=== PATIENT | female | born 1970 | race African-American/Black ===

== ENCOUNTER 2018-04-18 15:17 | Emergency (ER) | payer BC ==
[2018-04-18] MEDS ORDERED: FAMOTIDINE 20 MG/2 ML VIAL IV ONE (15:27)
[2018-04-18] MEDS ORDERED: METHYLPREDNISOLONE 125 MG INJ ONE (15:27)
--- NOTE | 2018-04-18 16:07 | ER ---
Nurse's Notes [facility] Name: Tania Jain Age: 47 yrs Sex: Female : 1970 Arrival Date: 04/18/2018 Time: 15:19 Bed 5 Private MD: Diagnosis: Urticaria Presentation: 04/18 15:30 Presenting complaint: Patient states: Developed hives on face after CT, sent from radiology dept. Transition of care: patient was not received from another setting of care. Onset of symptoms was April 18, 2018. Risk Assessment: Do you want to hurt yourself or someone else? Patient reports no desire to harm self or others. Initial Sepsis Screen: Does the patient meet any 2 criteria? No. Patient's initial sepsis screen is negative. Does the patient have a suspected source of infection? No. Patient's initial sepsis screen is negative. Care prior to arrival: None. 15:30 Method Of Arrival: Ambulatory 15:30 Acuity: BART 3 Triage Assessment: 15:15 General: Appears in no apparent distress. comfortable, Behavior is calm, cooperative, cc3 appropriate for age. Pain: Denies pain. EENT: No signs and/or symptoms were reported regarding the EENT system. Neuro: Level of Consciousness is awake, alert, obeys commands, Oriented to person, place, time, situation, Appropriate for age. Cardiovascular: Denies chest pain. Respiratory: Airway is patent Respiratory effort is even, unlabored, Respiratory pattern is regular, symmetrical. GI: Abdomen is round. : No signs and/or symptoms were reported regarding the genitourinary system. Derm: Reports developing hives on the face after being injected iodine contrast dye from CT scan department for her outpatient CT scan abdomen procedure at 1500H. Musculoskeletal: No signs and/or symptoms reported regarding the musculoskeletal system. [employer]: 15:15 LMP 09/2017 cc3 Historical: - Allergies: 15:30 No Known Allergies; hb - Immunization history:: Adult Immunizations up to date. - Social history:: Smoking status: Patient uses tobacco products. - Ebola Screening: : No symptoms or risks identified at this time. Screenin:31 Abuse screen: Denies threats or abuse. Denies injuries from another. Nutritional hb screening: No deficits noted. Tuberculosis screening: No symptoms or risk factors identified. Fall Risk None identified. Assessment: 15:15 General: Appears in no apparent distress. comfortable, Behavior is calm, cooperative, cc3 appropriate for age. Pain: Denies pain. Neuro: Level of Consciousness is awake, alert, obeys commands, Oriented to person, place, time, situation, Appropriate for age. Cardiovascular: Denies chest pain. Respiratory: Airway is patent Respiratory effort is even, unlabored, Respiratory pattern is regular, symmetrical. GI: Abdomen is round. : No signs and/or symptoms were reported regarding the genitourinary system. EENT: No signs and/or symptoms were reported regarding the EENT system. Derm: hives developed on the face after being injected iodine contrast dye from CT scan department. Musculoskeletal: No signs and/or symptoms reported regarding the musculoskeletal system. 16:00 Reassessment: Patient appears in no apparent distress at this time. Patient and/or cc3 family updated on plan of care and expected duration. Pain level reassessed. Patient is alert, oriented x 3, equal unlabored respirations, skin warm/dry/pink. hives on the face subsided and almost gone. Patient denies pain at this time. Patient states feeling better. Patient states symptoms have improved. Vital Signs: 15:15 BP 111 / 85; Pulse 73; Resp 18; Pulse Ox 97% ; sv 16:00 BP 110 / 77; Pulse 72; Resp 17; Pulse Ox 97% on R/A; Pain 0/10; cc3 ED Course: 15:15 Patient has correct armband on for positive identification. Bed in low position. Call cc3 light in reach. Side rails up X 1. 15:19 Patient arrived in ED. kb 15:19 Kandi Andrade FNP-C is [facility]. kb 15:19 Mainor Kiser MD is Attending Physician. kb 15:20 Inserted saline lock: 20 gauge in right antecubital area, using aseptic technique. cc3 15:31 Triage completed. hb 15:31 Arm band placed on right wrist. hb 15:50 Heather Escobedo is Primary Nurse. cc3 16:10 IV discontinued, intact, bleeding controlled, No redness/swelling at site. Pressure cc3 dressing applied. 16:10 No provider procedures requiring assistance completed. cc3 Administered Medications: 15:25 Drug: Pepcid 20 mg Route: IVP; Site: right antecubital; cc3 16:00 Follow up: Response: No adverse reaction cc3 15:30 Drug: SOLU-Medrol 125 mg Route: IVP; Site: right antecubital; cc3 16:00 Follow up: Response: No adverse reaction cc3 Outcome: 16:07 Discharge ordered by . ruby 16:10 Discharged to home ambulatory. cc3 16:10 Condition: stable 16:10 Discharge instructions given to Instructed on discharge instructions, follow up and referral plans. medication usage, Demonstrated understanding of instructions, follow-up care, medications, Prescriptions given X 2. 16:16 Patient left the ED. cc3 Signatures: Kandi Andrade, ROBIN-Beba Waite RN RN Trina Rodriguez RN RN Heather Chang cc3
--- NOTE | 2018-04-18 16:07 | EDPHYS ---
Physician Documentation [facility] Name: Tania Jain Age: 47 yrs Sex: Female : 1970 Arrival Date: 04/18/2018 Time: 15:19 Bed 5 Private MD: ED Physician Mainor Kiser HPI: 04/18 16:05 This 47 yrs old Black Female presents to ER via Ambulatory with complaints of Allergic kb Reaction. 16:05 The patient presents with itching, rash, of the face. Onset: The symptoms/episode kb began/occurred just prior to arrival. Associated signs and symptoms: Pertinent positives: hives, Pertinent negatives: abdominal pain, Altered mental status chest pain, dysphagia, fever, headache, Light headed nausea, rash, shortness of breath, swelling, Syncope vomiting. Possible causes: IV contrast. At home the patient or guardian has treated the symptoms with nothing. Severity of symptoms: At their worst the symptoms were mild in the emergency department the symptoms are unchanged. The patient has not experienced similar symptoms in the past. The patient has not recently seen a physician. Pt was having an outpatient CT done with contrast and developed hives after IV contrast infused. It was pt's first time to receive contrast.. 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 - Social history:: Smoking status: Patient uses tobacco products. - Ebola Screening: : No symptoms or risks identified at this time. ROS: 16:04 Constitutional: Negative for fever, chills, and weight loss, Cardiovascular: Negative kb for chest pain, palpitations, and edema, Respiratory: Negative for shortness of breath, cough, wheezing, and pleuritic chest pain, Abdomen/GI: Negative for abdominal pain, nausea, vomiting, diarrhea, and constipation, Back: Negative for injury and pain, : Negative for injury, bleeding, discharge, and swelling, MS/Extremity: Negative for injury and deformity, Neuro: Negative for headache, weakness, numbness, tingling, and seizure. 16:04 Skin: Positive for rash, of the face. Exam: 16:04 Constitutional: This is a well developed, well nourished patient who is awake, alert, kb and in no acute distress. Head/Face: Normocephalic, atraumatic. Chest/axilla: Normal chest wall appearance and motion. Nontender with no deformity. No lesions are appreciated. Cardiovascular: Regular rate and rhythm with a normal S1 and S2. No gallops, murmurs, or rubs. Normal PMI, no JVD. No pulse deficits. Respiratory: Lungs have equal breath sounds bilaterally, clear to auscultation and percussion. No rales, rhonchi or wheezes noted. No increased work of breathing, no retractions or nasal flaring. Abdomen/GI: Soft, non-tender, with normal bowel sounds. No distension or tympany. No guarding or rebound. No evidence of tenderness throughout. MS/ Extremity: Pulses equal, no cyanosis. Neurovascular intact. Full, normal range of motion. Neuro: Awake and alert, GCS 15, oriented to person, place, time, and situation. Cranial nerves II-XII grossly intact. Motor strength 5/5 in all extremities. Sensory grossly intact. Cerebellar exam normal. Normal gait. 16:04 Skin: rash a mild rash is noted, consistent with urticaria, on the face. Vital Signs: 15:15 BP 111 / 85; Pulse 73; Resp 18; Pulse Ox 97% ; sv 16:00 BP 110 / 77; Pulse 72; Resp 17; Pulse Ox 97% on R/A; Pain 0/10; cc3 MDM: 15:19 Patient medically screened. kb 16:04 Data reviewed: vital signs, nurses notes. Data interpreted: Pulse oximetry: on room air kb is 97 %. Interpretation: normal. Counseling: I had a detailed discussion with the patient and/or guardian regarding: the historical points, exam findings, and any diagnostic results supporting the discharge/admit diagnosis, the need for outpatient follow up, a family practitioner, to return to the emergency department if symptoms worsen or persist or if there are any questions or concerns that arise at home. 04/18 15:20 Order name: IV Start; Complete Time: 15:39 kb Administered Medications: 15:25 Drug: Pepcid 20 mg Route: IVP; Site: right antecubital; cc3 16:00 Follow up: Response: No adverse reaction cc3 15:30 Drug: SOLU-Medrol 125 mg Route: IVP; Site: right antecubital; cc3 16:00 Follow up: Response: No adverse reaction cc3 Disposition: 04/18/18 16:07 Discharged to Home. Impression: Urticaria. - Condition is Stable. - Discharge Instructions: Hives, [id number], Allergies, [id number]. - Prescriptions for Pepcid 20 mg Oral Tablet - take 1 tablet by ORAL route every 12 hours for 5 days; 10 tablet. Prednisone 20 mg Oral Tablet - take 1 tablet by ORAL route once daily for 5 days; 5 tablet. - Medication Reconciliation Form, Thank You Letter, Antibiotic Education, Prescription Opioid Use form. - Follow up: Emergency Department; When: As needed; Reason: Worsening of condition. Follow up: Private Physician; When: 2 - 3 days; Reason: Recheck today's complaints, Continuance of care, Re-evaluation by your physician. Addendum: 04/22/2018 07:47 Co-signature as Attending Physician, Mainor Kiser MD I agree with the assessment and c higginbotham plan of care. Signatures: Kandi Andrade, BARREL CLEANER-C BARREL CLEANER-Ckb Mainor Kiser MD MD cha Baxter, Heather, RN RN Heather Escobedo cc3 Corrections: (The following items were deleted from the chart) 04/18 16:16 16:07 04/18/2018 16:07 Discharged to Home. Impression: Urticaria. Condition is Stable. cc3 Forms are Medication Reconciliation Form, Thank You Letter, Antibiotic Education, Prescription Opioid Use. Follow up: Emergency Department; When: As needed; Reason: Worsening of condition. Follow up: Private Physician; When: 2 - 3 days; Reason: Recheck today's complaints, Continuance of care, Re-evaluation by your physician. kb
== END 2018-04-18 16:16 | disposition home or self-care (01) ==
LOC: ER 15:17
DX: L50.9 Urticaria, unspecified (principal); Z72.0 Tobacco use
CPT/HCPCS: 96374; 96375; 99283; J2930

== ENCOUNTER 2019-09-25 13:35 | Emergency (ER) | payer BC ==
[2019-09-25 14:48] LABS: Absolute Lymphocytes (CBC) 2.6 K/uL (0.7-4.9); Basophils % 0.6 % (0-1.3); Hematocrit 41.1 % (36.0-45.0); Lymphocytes % 26.7 % (15.3-44.8); MPV 9.1 fL (7.6-11.3)
[2019-09-25 14:51] LABS: Protime INR 1.12
[2019-09-25 15:06] LABS: ALT/SGPT 27 U/L (12-78); AST/SGOT 19 U/L (15-37); Albumin 3.7 g/dL (3.4-5.0); Alkaline Phosphatase 111 U/L (45-117); BUN Blood Urea Nitrogen 10 mg/dL (7-18); Bicarbonate 30 mmol/L (21-32); Bilirubin Direct 0.1 mg/dL (0-0.2); Bilirubin Total 0.4 mg/dL (0.2-1.0); Creatine Phosphokinase 97 U/L (26-192); Glucose Level 112 mg/dL (74-106); Magnesium 2.2 mg/dL (1.8-2.4); NT PRO-BNP 24 pg/mL (<125); Potassium 3.5 mmol/L (3.5-5.1); Protein, Total 8.3 g/dL (6.4-8.2); Sodium Level 140 mmol/L (136-145); Troponin (Emerg Dept Use Only) < 0.02 ng/mL (0.0-0.045)
--- NOTE | 2019-09-25 15:07 | EKG ---
Test Date: 2019-09-25 Test Time: 14:25:13 Art Instructor: BELLE MEASUREMENT RESULTS: Intervals: Rate: 71 WA: 132 QRSD: 80 QT: 390 QTc: 423 [place]: P: 74 WA: 132 QRS: 79 T: 66 INTERPRETIVE STATEMENTS: Normal sinus rhythm with sinus arrhythmia Normal ECG No previous ECG available for comparison Electronically Signed On 09-25-19 15:06:31 STICKER HAND by Goran Graham
--- NOTE | 2019-09-25 15:14 | RAD REPORT ---
EXAM DESCRIPTION: RAD - Tib Fib Left - 09/25/2019 3:07 pm CLINICAL HISTORY: lower extremity pain Pain and swelling COMPARISON: No comparisons FINDINGS: No bone or joint abnormality is detected.
--- NOTE | 2019-09-25 15:16 | RAD REPORT ---
EXAM DESCRIPTION: RAD - Chest Single View - 09/25/2019 3:07 pm CLINICAL HISTORY: CHEST PAIN Chest pain. COMPARISON: No comparisons FINDINGS: Portable technique limits examination quality. The lungs are grossly clear. The heart is normal in size. No displaced fractures. IMPRESSION: No acute intrathoracic process suspected.
--- NOTE | 2019-09-25 15:40 | EDPHYS ---
Physician Documentation [facility] Name: Tania Jain Age: 49 yrs Sex: Female : 1970 Arrival Date: 09/25/2019 Time: 13:38 Bed 26 Private MD: ED Physician Juana Benavides HPI: 09/25 14:35 This 49 yrs old Black Female presents to ER via Ambulatory with complaints of Leg Pain, jmm Chest Pain. 14:35 The patient presents with pain. Onset: The symptoms/episode began/occurred 6 month(s) jmm ago. Modifying factors: The symptoms are alleviated by nothing. the symptoms are aggravated by nothing. This is a 49 year of female with no chronic medical conditions that presents to the ED with complaints of ongoing extremity pain. Patient states this past week she developed spasms to her chest and abdomen. Patient states she has been having ongoing pain which is currently being evaluated by her pcp. . 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 - Coronavirus screen:: The patient has NOT traveled to [place], [place], or [place] in the past 14 days. Proceed with normal triage process as indicated. - Social history:: Smoking status: Patient denies any tobacco usage or history of. - Ebola Screening: : Patient negative for fever greater than or equal to 101.5 degrees Fahrenheit, and additional compatible Ebola Virus Disease symptoms Patient denies exposure to infectious person Patient denies travel to an Ebola-affected area in the 21 days before illness onset No symptoms or risks identified at this time. ROS: 14:35 Constitutional: Negative for fever, chills, and weight loss. jmm 14:35 Cardiovascular: Positive for chest pain. 14:35 Respiratory: Negative for shortness of breath. 14:35 Abdomen/GI: Positive for abdominal pain. 14:35 MS/extremity: Positive for pain. 14:35 All other systems are negative. Exam: 14:35 Constitutional: This is a well developed, well nourished patient who is awake, alert, jmm and in no acute distress. Head/Face: atraumatic. Eyes: EOMI, no conjunctival erythema appreciated ENT: Moist Mucus Membranes Neck: Trachea midline, Supple Chest/axilla: Normal chest wall appearance and motion. Cardiovascular: Regular rate and rhythm. No edema appreciated Respiratory: Normal respirations, no respiratory distress appreciated Abdomen/GI: Non distended, soft Back: Normal ROM Skin: General appearance color normal MS/ Extremity: Moves all extremities, no obvious deformities appreciated, no edema noted to the lower extremities Neuro: Awake and alert, normal gait Psych: Behavior is normal, Mood is normal, Patient is cooperative and pleasant 14:35 Musculoskeletal/extremity: ROM: intact in all extremities. Vital Signs: 14:13 BP 124 / 93; Pulse 97; Resp 16 S; Temp 98.3; Pulse Ox 100% on R/A; Weight 87.09 kg; iw Height 5 ft. 1 in. (154.94 cm); Pain 6/10; 15:11 BP 125 / 75; Pulse 66; Resp 18; Pulse Ox 100% on R/A; wh 15:47 BP 107 / 78; Pulse 70; Resp 16; Pulse Ox 100% on R/A; wh 14:13 Body Mass Index 36.28 (87.09 kg, 154.94 cm) iw MDM: 14:16 Patient medically screened. [facility] 15:37 Data reviewed: vital signs, nurses notes. Counseling: I had a detailed discussion with leonora the patient and/or guardian regarding: the historical points, exam findings, and any diagnostic results supporting the discharge/admit diagnosis, lab results, radiology results, the need for outpatient follow up, to return to the emergency department if symptoms worsen or persist or if there are any questions or concerns that arise at home. ED course: Patient is alert and non toxic in appearance. I do not currently suspect ACS, PE, or DVT. Patient advised to follow up with neuro for further evaluation of pain. Patient is advised to follow up with pcp for reevaluation. Patient is otherwise given strict return precautions. patient understood and agrees with the plan of care. . 09/25 14:17 Order name: Basic Metabolic Panel; Complete Time: 15: [facility] 09/25 14:17 Order name: CBC with Diff; Complete Time: 15: [facility] 09/25 14:17 Order name: LFT's; Complete Time: : [facility] 09/25 14:17 Order name: Magnesium; Complete Time: 15:07 [facility] 09/25 14:17 Order name: NT PRO-BNP; Complete Time: 15: [facility] 09/25 14:17 Order name: PT-INR; Complete Time: 15:02 [facility] 09/25 14:17 Order name: Troponin (emerg Dept Use Only); Complete Time: 15:07 [facility] 09/25 14:17 Order name: XRAY Chest (1 view); Complete Time: 15:26 [facility] 09/25 14:17 Order name: EKG; Complete Time: 14:18 [facility] 09/25 14:17 Order name: Cardiac monitoring; Complete Time: 14:36 [facility] 09/25 14:17 Order name: EKG - Nurse/Tech; Complete Time: 14:36 [facility] 09/25 14:17 Order name: CPK; Complete Time: 15: [facility] 09/25 14:17 Order name: D-Dimer; Complete Time: 15:02 [facility] 09/25 14:17 Order name: Tib Fib Left XRAY; Complete Time: 15:26 [facility] 09/25 14:17 Order name: IV Saline Lock; Complete Time: 14:36 [facility] 09/25 14:17 Order name: Labs collected and sent; Complete Time: 14:36 [facility] 09/25 14:17 Order name: O2 Per Protocol; Complete Time: 14:36 [facility] 09/25 14:17 Order name: O2 Sat Monitoring; Complete Time: 14:36 jm Administered Medications: No medications were administered Disposition: 18:17 Co-signature as Attending Physician, Juana Benavides MD. ma2 Disposition: 09/25/19 15:39 Discharged to Home. Impression: Pain in left lower leg, Chest pain, unspecified. - Condition is Stable. - Discharge Instructions: Nonspecific Chest Pain, Musculoskeletal Pain. - Medication Reconciliation Form, Thank You Letter, Antibiotic Education, Prescription Opioid Use form. - Follow up: Yan Lopez MD; When: 1 - 2 days; Reason: Recheck today's complaints, Continuance of care, Re-evaluation by your physician. Signatures: Dispatcher [employer] EDTristen José PA PA jmm Williams, Irene, RN RN iw Habalo, Winsy wh Alzahri, Mohammad, MD MD ma2 Corrections: (The following items were deleted from the chart) 15:40 15:39 09/25/2019 15:39 Discharged to Home. Impression: Pain in left lower leg; Chest jmm pain, unspecified. Condition is Stable. Forms are Medication Reconciliation Form, Thank You Letter, Antibiotic Education, Prescription Opioid Use. Follow up: Private Physician; When: 2 - 3 days; Reason: Recheck today's complaints, Continuance of care, Re-evaluation by your physician. [facility] 15:54 15:40 09/25/2019 15:39 Discharged to Home. Impression: Pain in left lower leg; Chest wh pain, unspecified. Condition is Stable. Discharge Instructions: Nonspecific Chest Pain, Musculoskeletal Pain. Forms are Medication Reconciliation Form, Thank You Letter, Antibiotic Education, Prescription Opioid Use. Follow up: Yan Lopez; When: 1 - 2 days; Reason: Recheck today's complaints, Continuance of care, Re-evaluation by your physician. [facility]
--- NOTE | 2019-09-25 15:40 | ER ---
Nurse's Notes [facility] Name: Tania Jain Age: 49 yrs Sex: Female : 1970 Arrival Date: 09/25/2019 Time: 13:38 Bed 26 Private MD: Diagnosis: Pain in left lower leg;Chest pain, unspecified Presentation: 09/25 14:06 Presenting complaint: Patient states: pt has had muscle spasms in chest all last week iw also has had pain all over body since March, was seen by PCP and told her vitamin D was low also feels burning pain under her skin and has had a low grade fever this past week. Transition of care: patient was not received from another setting of care. Onset of symptoms was September 19, 2019. Risk Assessment: Do you want to hurt yourself or someone else? Patient reports no desire to harm self or others. Initial Sepsis Screen: Does the patient meet any 2 criteria? No. Patient's initial sepsis screen is negative. Does the patient have a suspected source of infection? No. Patient's initial sepsis screen is negative. Care prior to arrival: None. 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 - Coronavirus screen:: The patient has NOT traveled to [place], [place], or [place] in the past 14 days. Proceed with normal triage process as indicated. - Social history:: Smoking status: Patient denies any tobacco usage or history of. - Ebola Screening: : Patient negative for fever greater than or equal to 101.5 degrees Fahrenheit, and additional compatible Ebola Virus Disease symptoms Patient denies exposure to infectious person Patient denies travel to an Ebola-affected area in the 21 days before illness onset No symptoms or risks identified at this time. Screenin:10 Abuse screen: Denies threats or abuse. Denies injuries from another. Nutritional wh screening: No deficits noted. Tuberculosis screening: No symptoms or risk factors identified. Fall Risk None identified. Assessment: 14:05 General: Appears in no apparent distress. well groomed, Behavior is calm, cooperative, wh appropriate for age. Pain: Complains of pain in generalized pain all over Pain does not radiate. Pain began a week ago. Neuro: Level of Consciousness is awake, alert, obeys commands, Oriented to person, place, time, situation, Appropriate for age. Cardiovascular: Denies chest pain, Heart tones S1 S2 Rhythm is regular. Respiratory: Airway is patent Respiratory effort is even, unlabored, Respiratory pattern is regular, symmetrical, Breath sounds are clear bilaterally. GI: Abdomen is flat, non-distended. : No signs and/or symptoms were reported regarding the genitourinary system. EENT: No signs and/or symptoms were reported regarding the EENT system. Derm: Skin is intact, is healthy with good turgor, Skin is pink, warm \T\ dry. normal. Musculoskeletal: Circulation, motion, and sensation intact. Reports muscle spasms. 15:07 Reassessment: Patient appears in no apparent distress at this time. No changes from previously documented assessment. Patient and/or family updated on plan of care and expected duration. Pain level reassessed. Patient is alert, oriented x 3, equal unlabored respirations, skin warm/dry/pink. 15:47 Reassessment: Patient appears in no apparent distress at this time. No changes from previously documented assessment. Patient and/or family updated on plan of care and expected duration. Pain level reassessed. Patient is alert, oriented x 3, equal unlabored respirations, skin warm/dry/pink. Patient denies pain at this time. Vital Signs: 14:13 BP 124 / 93; Pulse 97; Resp 16 S; Temp 98.3; Pulse Ox 100% on R/A; Weight 87.09 kg; iw Height 5 ft. 1 in. (154.94 cm); Pain 6/10; 15:11 BP 125 / 75; Pulse 66; Resp 18; Pulse Ox 100% on R/A; wh 15:47 BP 107 / 78; Pulse 70; Resp 16; Pulse Ox 100% on R/A; wh 14:13 Body Mass Index 36.28 (87.09 kg, 154.94 cm) iw ED Course: 13:38 Patient arrived in ED. ag5 14:05 Missed attempt(s): 22 gauge in right antecubital area. Bleeding controlled, band aid wh applied, catheter tip intact. Patient maintains SpO2 saturation greater than 95% on room air. 14:06 Tristen Bui PA is PHCP. [facility] 14:06 Juana Benavides MD is Attending Physician. [facility] 14:07 Marimar Gonzalez is Primary Nurse. 14:09 Triage completed. iw 14:10 Patient has correct armband on for positive identification. Placed in gown. Bed in low wh position. Call light in reach. Side rails up X 1. processing lead on. Pulse ox on. NIBP on. 14:13 Arm band placed on. iw 14:15 EKG done, by ED staff, reviewed by Tristen ALVAREZ. 15:09 XRAY Chest (1 view) In Process Unspecified. EDMS 15:09 Tib Fib Left XRAY In Process Unspecified. EDMS 15:39 Yan Lopez MD is Referral Physician. [facility] 15:48 No provider procedures requiring assistance completed. Patient did not have IV access wh during this emergency room visit. Administered Medications: No medications were administered Outcome: 15:39 Discharge ordered by MD. [facility] 15:49 Discharged to home ambulatory. 15:49 Condition: stable 15:49 Discharge instructions given to patient, Instructed on discharge instructions, follow up and referral plans. POC Demonstrated understanding of instructions, follow-up care, POC 15:54 Patient left the ED. Signatures: Dispatcher [employer] EDSD Tristen Bui PA PA jmm Williams, Irene, RN RN Marimar Gonzalez Evy Troncoso ag5
[2019-09-25 16:07] VITALS: O2SAT 100
[2019-09-25 16:08] VITALS: TEMP 98.3
[2019-09-25 16:10] VITALS: BP 107/78
== END 2019-09-25 15:54 | disposition home or self-care (01) ==
LOC: ER 13:35
DX: R07.9 Chest pain, unspecified (principal); M79.662 Pain in left lower leg; Z91.09 Other allergy status, other than to drugs and biological substances
CPT/HCPCS: 36415; 71045; 80048; 80076; 82550; 83735; 83880; 84484; 85025; 85379; 85610; 93005; 99284